=== PATIENT | female | born 1935 | race Caucasian/White ===

== ENCOUNTER 2016-06-21 00:12 | Emergency (ER) | payer MEDICARE, OTHER ==
[~2016-06-21] VITALS: Ht 157.5 cm; Wt 51.8 kg
[~2016-06-21 00:12] MED LIST: ASPI81TA2 PO; B12/1TAB3 PO; CHLO25TA PO; CHOL10003 PO; CODE1CAP19 PO; COLE3.754 PO; CYCL5TAB PO; ESTR1TAB15 PO; HYDR-2868 PO; HYDR-79 PO; HYDR12.53 PO; HYDR200T5 PO; LACT1CAP8 PO; MELO7.5T5 PO; METH2.5T PO; PRED20TA PO; VALS1TAB18 PO; VALS320T2 PO; VIT1CAPS20 PO; VITA400C36 PO
[2016-06-21] MEDS ORDERED: PREDNISONE 10 MG TABLET ONE (00:34)
[2016-06-21 00:49] VITALS: BP 152/72
[2016-06-21] MEDS ORDERED: PREDNISONE 10 MG TABLET PO ONE (01:00)
[2016-06-21] MEDS ORDERED: PREDNISONE 20 MG TABLET PO ONE (01:00)
--- NOTE | 2016-06-21 03:50 | ED.ADGEN ---
Past History Past Medical History: Arthritis, Hypertension, Other Past Surgical History: Appendectomy, Cholecystectomy, Hysterectomy, Other Alcohol Use: Rarely Drug Use: None Adult General Chief Complaint Chief Complaint Wrist pain HPI HPI Patient is a 81-year-old female with history of rheumatoid arthritis and carpal tunnel syndrome who presents with nontraumatic right wrist pain for the past 24 hours. Patient is wearing supportive wrist braces and has taken hydrocodone at home without any improvement prior to ED arrival. Patient with diffuse right wrist pain, tenderness with painful range of motion. Minimal swelling noticed to wrist, and right third MCP and finger. No cellulitis or erythema. Review of Systems Review of Systems ROS as per HPI. Current Medications Current Medications Current Medications Medications (Trade) Dose Ordered Sig/Meliza Start Time Stop Time Status Last Admin Dose Admin Prednisone (Prednisone) 50 mg 1X ONCE 06/21/16 01:00 06/21/16 01:00 DC 06/21/16 00:49 50 MG Allergies Allergies Allergies Coded Allergies Type Severity Reaction Last Updated Verified No Known Drug Allergies 08/25/15 No Physical Exam Physical Exam Constitutional: Well developed, well nourished, no acute distress, non-toxic appearance. HENT: Normocephalic, atraumatic, bilateral external ears normal, oropharynx moist. Eyes: PERRLA, EOMI. Neck: Normal range of motion. Extremities: Right upper extremity/wrist, diffuse right wrist pain, tenderness with painful range of motion. Minimal swelling noticed to wrist, and right third MCP and finger. No cellulitis or erythema. Neurologic: Alert and oriented X 3, extremity, no motor weakness or loss of sensation. Psychologic: Affect normal, judgement normal, mood normal. Current Patient Data Vital Signs Vital Signs Date Time Temp Pulse Resp B/P Pulse Ox O2 Delivery O2 Flow Rate FiO2 06/21/16 00:49 61 20 152/72 95 Room Air 06/21/16 00:28 97.4 EKG EKG [] Radiology/Procedures Radiology/Procedures [] Impressions: atraumatic right wrist pain consistent with rheumatoid arthritis Course & Med Decision Making Course & Med Decision Making Pertinent Labs and Imaging studies reviewed. (See chart for details) [Prednisone given. Recommend PCP follow up for further management. Final Impression Final Impression [1. Right wrist pain 2. h/o rheumatoid arthritis] Problems: Dragon Disclaimer Dragon Disclaimer This electronic medical record was generated, in whole or in part, using a voice recognition dictation system. HEATHER WATSON DO Jun 21, 2016 03:49
== END 2016-06-21 00:49 | disposition home or self-care (01) ==
LOC: ER 00:12
DX: M25.531 Pain in right wrist (principal); M06.9 Rheumatoid arthritis, unspecified; G56.00 Carpal tunnel syndrome, unspecified upper limb; I10 Essential (primary) hypertension
CPT/HCPCS: 99283; J7512

== ENCOUNTER 2016-10-15 16:38 | Inpatient (IN) | payer MEDICARE, OTHER ==
[~2016-10-15] VITALS: Ht 157.5 cm; Wt 54.1 kg
[~2016-10-15 16:38] MED LIST changes: +ASPI-630 PO; -ASPI81TA2 PO; +COLE3.753 PO; -COLE3.754 PO
[2016-10-15] MEDS ORDERED: ONDANSETRON PF 4 MG/2 ML VIAL. IV ONE (17:00)
[2016-10-15] MEDS ORDERED: HYDROmorphone PF 1 MG/ML DISP.SYRIN IV PRN (17:00)
--- NOTE | 2016-10-15 17:02 | PHYS DOC ---
Past History Past Medical History: Arthritis, Hypertension, Other Past Surgical History: Appendectomy, Cholecystectomy, Hysterectomy, Other Alcohol Use: Rarely Drug Use: None Adult General Chief Complaint Chief Complaint: GROIN PAIN HPI HPI 81-year-old female presenting to the emergency department today with left groin pain. Certain of this morning around 8:00. It is a sharp moderate to severe pain intermittent and without alleviating factors. It is worse when she moves her hip. She denies recent trauma. The pain radiates across from her buttocks into her groin. She denies nausea vomiting fevers chills or abdominal pain. Review of systems is negative for chest pain or syncope vision changes numbness weakness or tingling. All other review of systems is negative unless otherwise noted in history of present illness. ED course: 81-year-old female presenting to the emergency department with groin pain. Vital signs unremarkable. Pertinent physical exam findings showed no evidence of hernia in the groin. Patient in mild pain with passive range of motion of the left hip. Otherwise nontender back and soft nontender abdomen. The remainder the exam was unremarkable. The patient was given IV pain medication to help control her pain. On reexamination she was not feeling better and was subsequently admitted for further evaluation workup and care. Review of Systems Review of Systems ]SEE ABOVE. Current Medications Current Medications Current Medications Medications (Trade) Dose Ordered Sig/[facility] Start Time Stop Time Status Last Admin Dose Admin Hydromorphone HCl (Dilaudid) 0.5 mg PRN Q30MIN PRN 10/15/16 17:00 Ondansetron HCl (Zofran) 4 mg 1X ONCE 10/15/16 17:00 10/15/16 17:01 Allergies Allergies Allergies Coded Allergies Type Severity Reaction Last Updated Verified No Known Drug Allergies 08/25/15 No Physical Exam Physical Exam See above. Constitutional: Well developed, well nourished, no acute distress, non-toxic appearance. [] HENT: Normocephalic, atraumatic, bilateral external ears normal, oropharynx moist, no oral exudates, nose normal. [] Eyes: PERRLA, EOMI, conjunctiva normal, no discharge. [] Neck: Normal range of motion, no tenderness, supple, no stridor. [] Cardiovascular:Heart rate regular rhythm, no murmur [] Lungs & Thorax: Bilateral breath sounds clear to auscultation [] Abdomen: Bowel sounds normal, soft, no tenderness, no masses, no pulsatile masses. [] See above. Skin: Warm, dry, no erythema, no rash. [] Back: No tenderness, no CVA tenderness. [] Extremities: Palpable pulse in all extremities. 2 second cap refill in all extremities. See above. Neurologic: Alert and oriented X 3, normal motor function, normal sensory function, no focal deficits noted. [] Psychologic: Affect normal, judgement normal, mood normal. [] EKG EKG [] Radiology/Procedures Radiology/Procedures [] Course & Med Decision Making Course & Med Decision Making Pertinent Labs and Imaging studies reviewed. (See chart for details) [] Dragon Disclaimer Dragon Disclaimer This chart was dictated in whole or in part using Voice Recognition software in a busy, high-work load, and often noisy Emergency Department environment. It may contain unintended and wholly unrecognized errors or omissions. Departure Departure: Impression: Primary Impression: Left hip pain Disposition: ADMITTED INPATIENT Admitting Physician: Jailyn Figueroa Condition: STABLE Referrals: SPARKLE RODRIGUEZ MD (PCP) Patient Instructions: Hip Pain LUCY MORENO MD Oct 15, 2016 17:02
[2016-10-15] MEDS ORDERED: MORPHINE SULFATE 2 MG/ML DISP.SYRIN. IV PRN (17:45)
[2016-10-15] MEDS ORDERED: ONDANSETRON PF 4 MG/2 ML VIAL. IV PRN (17:45)
[2016-10-15 17:50] LABS: CALCIUM 8.8 mg/dL (8.5-10.1); CREATININE 0.9 mg/dL (0.6-1.0); GFR 60.2; POTASSIUM 4.9 mmol/L (3.5-5.1)
[2016-10-15 17:54] LABS: BASO % 1 % (0-3); EOS % 0 % (0-3); HEMATOCRIT 31.5 % (36.0-47.0); HEMOGLOBIN 10.8 g/dL (12.0-15.5); LYMPH # 1.1 x10^3/uL (1.0-4.8); LYMPH % 14 % (24-48); MEAN CORPUSCULAR HEMOGLOBIN 34 pg (25-35); MEAN CORPUSCULAR HGB CONC 34 g/dL (31-37); MEAN CORPUSCULAR VOLUME 98 fL (79-100); MONO # 0.9 x10^3/uL (0.0-1.1); MONO % 11 % (0-9); NEUT # 6.2 x10^3uL (1.8-7.7); NEUT % 75 % (31-73); PLATELET COUNT 232 x10^3/uL (140-400); RED BLOOD COUNT 3.22 x10^6/uL (3.50-5.40); RED CELL DISTRIBUTION WIDTH 14.5 % (11.5-14.5); WHITE BLOOD COUNT 8.2 x10^3/uL (4.0-11.0)
[2016-10-15] MEDS: IV NORMAL SALINE 1,000ML 1,000 ML IV SCH ×2 (17:54→20:59)
--- NOTE | 2016-10-15 18:16 | RAD ---
EXAM: Pelvis CT without contrast. HISTORY: Left hip pain. TECHNIQUE: Computed tomographic images of the pelvis were obtained without contrast. *One or more of the following individualized dose reduction techniques were utilized for this examination: 1. Automated exposure control. 2. Adjustment of the mA and/or kV according to patient size. 3. Use of iterative reconstruction technique. COMPARISON: None. FINDINGS: There is no fracture, dislocation or subluxation. The femoral heads are normal in configuration. There is minimal degenerative subchondral cyst formation involving the superior right humeral head and right anterior acetabulum. There are few tiny benign bone islands. There is a left hip effusion. There is minimal degenerative subchondral sclerosis and vacuum phenomenon involving the sacroiliac joints. There is grade 1 anterolisthesis of L4 and L5, measuring 7 mm. There is grade 1 anterolisthesis of L3 on L4 and L5 on S1, measuring 3 mm. There is instrumented posterior spinal fusion at L4-L5. There is disc space narrowing and facet arthropathy primarily at this level. There is common bile duct dilatation, likely due to reservoir effect status post cholecystectomy. There is moderate colonic stool. There is distal colonic diverticulosis. There is evidence of prior distal colonic resection. The uterus is surgically absent. The bladder is unremarkable. The ovaries are not seen. There is no lymphadenopathy. There is a focus of increased fat within the left angle canal, without significant herniation. IMPRESSION: 1. Left hip effusion. 2. Minimal osteoarthritis of the right hip and degenerative change involving the sacroiliac joints. 3. Multilevel degenerative change and postoperative change involving the lumbar spine, described above. 4. Colonic diverticulosis. Electronically signed by: Jacinta Mckinley MD (10/15/2016 6:14 PM) [facility]
[2016-10-15 19:05] LABS: SEDIMENTATION RATE 18 (0-25)
[2016-10-15] MEDS ORDERED: RANI150C PO (19:05)
[2016-10-15] MEDS ORDERED: FOLI1TAB16 PO (19:05)
[2016-10-15] MEDS ORDERED: HYDR-2758 PO (19:06)
[2016-10-15] MEDS ORDERED: CYAN500T17 PO (19:06)
[2016-10-15] MEDS ORDERED: INUL1TAB4 PO (19:06)
[2016-10-15 19:08] VITALS: BP 157/70
[2016-10-15] MEDS ORDERED: KETOROLAC TROMETHAMINE 10 MG TABLET PO ONE (19:50)
[2016-10-15 21:58] LABS: BACTERIA,URINE MANY /HPF (0-FEW); BILIRUBIN,URINE NEG (NEG); CLARITY,URINE CLOUDY; COLOR,URINE YELLOW; GLUCOSE,URINE NEG (NEG); NITRITE,URINE POS (NEG); SQUAMOUS EPITHELIAL CELL,UR MANY /LPF; UROBILINOGEN,URINE 0.2 mg/dL (0.2 mg/dL); WBC,URINE 20-40 /HPF (0-4)
[2016-10-15 22:25] VITALS: BP 134/79
[2016-10-16 05:50] VITALS: BP 158/68
[2016-10-16 06:05] LABS: BASO % 0 % (0-3); EOS % 0 % (0-3); HEMATOCRIT 26.7 % (36.0-47.0); HEMOGLOBIN 9.2 g/dL (12.0-15.5); LYMPH # 1.4 x10^3/uL (1.0-4.8); LYMPH % 20 % (24-48); MEAN CORPUSCULAR HEMOGLOBIN 34 pg (25-35); MEAN CORPUSCULAR HGB CONC 35 g/dL (31-37); MEAN CORPUSCULAR VOLUME 98 fL (79-100); MONO % 14 % (0-9); NEUT # 4.8 x10^3uL (1.8-7.7); NEUT % 66 % (31-73); PLATELET COUNT 177 x10^3/uL (140-400); RED BLOOD COUNT 2.73 x10^6/uL (3.50-5.40); RED CELL DISTRIBUTION WIDTH 14.4 % (11.5-14.5); WHITE BLOOD COUNT 7.3 x10^3/uL (4.0-11.0)
[2016-10-16 06:18] LABS: CALCIUM 7.7 mg/dL (8.5-10.1); GFR 53.3; POTASSIUM 4.6 mmol/L (3.5-5.1)
--- NOTE | 2016-10-16 08:09 | RAD ---
AP pelvis and 2 views left hip Indication: Left hip pain. Comparison: Same day CT pelvis. Findings: No acute fracture or traumatic malalignment. Prior L4-L5 posterior spinal fixation hardware. Right upper quadrant cholecystectomy clips. Left hip joint is maintained. No symphysis pubis widening. Impression: 1. No acute osseous abnormality. Please see same day CT pelvis for additional findings of the left hip.
[2016-10-16] MEDS ORDERED: hydroCHLOROthiazide 12.5 MG CAPSULE PO SCH (10:30)
[2016-10-16] MEDS: FOLIC ACID 1 MG TABLET PO SCH (10:44)
[2016-10-16] MEDS: CYANOCOBALAMIN (VITAMIN B-12) 1,000 MCG TABLET. PO SCH (10:44)
[2016-10-16] MEDS: CHOLECALCIFEROL (VITAMIN D3) 1,000 UNIT TABLET PO SCH (10:45)
[2016-10-16] MEDS: hydrALAZINE 25 MG TABLET PO SCH ×2 (10:45→22:17)
[2016-10-16] MEDS: FAMOTIDINE 20 MG TABLET PO SCH ×2 (10:45→22:17)
[2016-10-16] MEDS: ESTRADIOL 1 MG TABLET PO SCH (10:45)
[2016-10-16] MEDS: LACTOBACILLUS ACIDOPH & BULGAR 1 TABLET. PO SCH (10:46)
[2016-10-16] MEDS: ASPIRIN 81 MG TAB.CHEW PO SCH (10:46)
[2016-10-16] MEDS: LOSARTAN 50 MG TABLET. PO SCH (10:46)
[2016-10-16] MEDS: IV NORMAL SALINE 1,000ML 1,000 ML IV SCH (11:10)
[2016-10-16] MEDS: HYDROcodone/APAP 5/325MG 1 TAB TABLET PO PRN ×3 (11:13→22:59)
[2016-10-16 11:21] VITALS: BP 125/63
[2016-10-16 15:35] VITALS: BP 108/54
[2016-10-16] MEDS: PHENAZOPYRIDINE 200 MG TABLET. PO SCH ×2 (16:54→22:17)
--- NOTE | 2016-10-16 18:50 | HP ---
ADMIT DATE: 10/16/2016 REASON FOR ADMISSION: Left groin pain. HISTORY OF PRESENT ILLNESS: PRESENT ILLNESS: This is an 81-year-old female who evidently in the last week or so had been doing a lot of physical activity such as housework using mop scrubbing the floor on her hands and knees. She also had an episode of vomiting on Wednesday, which was pretty severe after eating and then developed this left groin pain. It is deep in the left groin was so severe that she could not walk and came to the Emergency Room yesterday and was admitted. PAST MEDICAL HISTORY: Rheumatoid arthritis, hypertension. She states she has some type of heart problem, but is not quite sure what it is. PAST SURGICAL HISTORY: Appendectomy, cholecystectomy, hysterectomy, and back surgery. MEDICATIONS: Reviewed and are available on the MAR. ALLERGIES: None. SOCIAL HISTORY: She is a . She does not smoke. Occasional alcohol. FAMILY HISTORY: Has daughters in the area that look in on her. REVIEW OF SYSTEMS: Positive for the left groin pain. No fever, no chills, no sore throat, no chest pain, no shortness of breath problems ambulating with this groin pain. OBJECTIVE: VITAL SIGNS: Blood pressure 125/63, pulse 58, respirations 20, temperature 98.5, pulse ox is 97% on room air. Height 62 inches, weight 114.2 pounds. GENERAL: An 81-year-old who looks younger than her stated age. HEENT: Hearing is normal. Her eyes are clear. Nose is patent. Throat was clear. NECK: Supple. LUNGS: Clear. CARDIOVASCULAR: Regular rhythm and rate with a 2/6 systolic murmur. ABDOMEN: Soft, nontender. EXTREMITIES: Without edema. MUSCULOSKELETAL: The patient is having considerable deep palpable left groin pain without evidence of a hernia. She had a lot of pain with moving her leg and swinging it over to stand. She stood with difficulty, no bulging hernia noted there either, able to bend knee and internally and externally rotate the leg without pain, but has pain with movement. DIAGNOSTIC DATA: Pelvic CT reveals a small left hip effusion, osteoarthritis of the right hip, multilevel degenerative changes of the back. She also has colonic diverticulosis. She was observed by physical therapy. She does have some pain, but is able to walk today shooting pain she describes it. LABORATORY DATA: Hematocrit 9.2, hemoglobin 26.7 this is after hydration. Chemistry: Sodium was 131 from 128. C-reactive protein is 33. Urine with 20-40 white cells, positive nitrites. ASSESSMENT: Possible urinary tract infection. Hyponatremia, probably secondary to hydrochlorothiazide, hypertension, left deep groin pain apparent urinary tract infection. PLAN: To treat urinary tract infection and see if these are related to her symptoms at all. FANTASMA HAMMONDS DO DR: MAHESH/phuc JOB#: [id number] / [id number]
[2016-10-16 20:45] VITALS: BP 123/51
[2016-10-16 23:27] VITALS: BP 161/60
[2016-10-17 05:09] VITALS: BP 123/55
[2016-10-17] MEDS: PHENAZOPYRIDINE 200 MG TABLET. PO SCH ×3 (06:03→20:32)
--- NOTE | 2016-10-17 06:15 | ACF ---
Admit Criteria Forms Admit Criteria Forms Admit Criteria Forms MUSCULOSKELETAL DISEASE GRG Clinical Indications for Admission to Inpatient Care (Place 'X' for any and all applicable criteria): Hospital admission is needed for appropriate care of the patient because of 1 or more of the following: [X]I. Fracture, dislocation, or other musculoskeletal injury requiring inpatient care(medical) as indicated by 1 or more of the following(4)(5)(6)(7) [ ]a) Vertebral fracture requiring observation for instability or neurologic compromise (8) [ ]b) Compartment syndrome (proven or cannot be ruled out during observation level of care) (9) [ ]c) Limb-threatening injury [ ]d) Major injury requiring inpatient stabilization such as traction initiation or external fixation before internal fixation or closure of complex or open fracture [ ]e) Major injury requiring inpatient treatment after emergency or observation level care (as appropriate) [X]f) Severe pain requiring acute inpatient management [ ]g) Injury with suspicion of abuse or neglect (eg., child, dependent elderly) [ ]II. Newly diagnosed or suspected bone, joint, or orthopedic device infection (e.g., osteomyelitis, septic arthritis) needing 1 or more of the following(1)(2)(3) [ ]a) IV antibiotics that cannot be initiated in other than inpatient setting (e.g., patient too unstable or home infusion not available) [ ]b) Device removal or replacement [ ]c) Bone or soft tissue debridement [ ]d) Joint drainage (drain placement or repetitive aspirations) [ ]III. Severe rheumatologic disease (e.g., systemic lupus erythematosus, rheumatoid arthritis) with complications or comorbidities (Also use Optimal Recovery Care Criteria or General Recovery Criteria as appropriate on the basis of predominant condition), including 1 or more of the following( 10)(11)(12)(13) [ ]a) Severe infection (e.g., POOL NURSE infection, sepsis) (14) [ ]b) Respiratory complications, including 1 or more of the following : [ ]i) Pleural effusion with respiratory compromise [ ]ii) Pulmonary hypertension with congestive failure [ ]iii) Respiratory failure [ ]iv) Pulmonary hemorrhage (15) [ ]c) Hematologic disease, including 1 or more of the following: [ ]i) Coagulopathy with bleeding [ ]ii) Thrombosis with hypercoagulable state [ ]iii) Thrombotic thrombocytopenic purpura [ ]d) Cerebritis with seizures, psychosis, or other severe abnormalities [ ]e) Vertebral destruction with monitoring needed for cervical myelopathy& possible respiratory compromise [ ]f) Exacerbation that requires inpatient treatment (e.g., intravenous immunosuppression) (16) [ ]g) Acute renal failure [ ]h) Cerebritis with seizures, psychosis, Altered mental status, or other neurologic abnormalities [ ]i) Pericardial effusion with tamponade [ ]j) Vertebral destruction, with monitoring needed for cervical myelopathy and possible respiratory compromise [ ]IV. Severe vasculitis with complications or comorbidities (Also use Optimal Recovery Care Criteria General Recovery Criteria as appropriate on the basis of predominant condition), including 1 or more of the following(11)(12)(17)(18)(19)(20) [ ]a) Exacerbation that requires inpatient treatment (e.g., intravenous immunosuppression) (19)(21) [ ]b) Pulmonary hemorrhage (15) [ ]c) POOL NURSE vasculitis with seizures, psychosis, Altered mental status that is severe or persistent, or other severe abnormalities (22) [ ]d) Cerebral infarction [ ]e) Gastrointestinal ischemia [ ]f) Gangrene or threatened amputation [ ]g) Renal failure (16) [ ]h) Other significant complications of vasculitis ( eg., tissue or organ ischemia, organ dysfunction ) [ ]V. Severe myopathy as indicated by 1 or more of the following (28)(29) [ ]a) New onset of airway compromise or inability to swallow [ ]b) Respiratory deterioration with observation needed for impending respiratory failure [ ]c) Exacerbation that requires inpatient treatment (e.g., intravenous immunosuppression) [ ]. Severe crystal gout (arthropathy) indicated by 1 or more of the following (23)(24) [ ]a) Severe pain requiring acute inpatient management [ ]b) Exacerbation that requires inpatient treatment (e.g., intravenous treatment) [ ]VII.Rhabdomyolysis and 1 or more of the following (25)(26)(27) [ ]a) Acute renal failure [ ]b) Need for intravenous hydration after emergency or observation level care (as appropriate) [ ]c) Inability to maintain oral hydration [ ]d) Change in mental status [ ]e) Electrolyte abnormality that remains after emergency or observation level care (as appropriate) [ ]VIII Post amputation complication, as indicated by ANY ONE of the following [ ]a) Infection [ ]b) Dehiscence [ ]c) Myodesis failure [ ]IX. Severe pain requiring acute inpatient management due to musculoskeletal condition [ ]X. Musculoskeletal Disease and ALL of the following: [ ]a) Symptom or finding for which emergency and observation care have failed or are not considered appropriate (Use General Criteria: Observation Care as appropriate) [ ]b) Presence of ANY ONE of the following [ ]i) A General Admission Criteria [ ]ii) A Pediatric General Admission Criteria The original [facility] content created by [facility] has been revised. The portions of the content which have been revised are identified through the use of italic text or in bold, and [facility] has neither reviewed nor approved the modified material. All other unmodified content is copyright [facility]. Please see references footnoted in the original [facility] 2016 PHIL DEJESUS Oct 17, 2016 06:15
[2016-10-17] MEDS: LOSARTAN 50 MG TABLET. PO SCH (08:29)
[2016-10-17] MEDS: FOLIC ACID 1 MG TABLET PO SCH (08:29)
[2016-10-17] MEDS: hydroCHLOROthiazide 25 MG TABLET PO SCH (08:30)
[2016-10-17] MEDS: CYANOCOBALAMIN (VITAMIN B-12) 1,000 MCG TABLET. PO SCH (08:31)
[2016-10-17] MEDS: CHOLECALCIFEROL (VITAMIN D3) 1,000 UNIT TABLET PO SCH (08:31)
[2016-10-17] MEDS: ESTRADIOL 1 MG TABLET PO SCH (08:32)
[2016-10-17] MEDS: FAMOTIDINE 20 MG TABLET PO SCH ×2 (08:32→20:32)
[2016-10-17] MEDS: hydrALAZINE 25 MG TABLET PO SCH ×2 (08:32→20:32)
[2016-10-17] MEDS: ASPIRIN 81 MG TAB.CHEW PO SCH (08:32)
[2016-10-17] MEDS: LACTOBACILLUS ACIDOPH & BULGAR 1 TABLET. PO SCH (08:32)
[2016-10-17 08:38] LABS: BASO % 1 % (0-3); EOS # 0.1 x10^3/uL (0.0-0.7); EOS % 2 % (0-3); HEMATOCRIT 28.5 % (36.0-47.0); HEMOGLOBIN 9.7 g/dL (12.0-15.5); LYMPH # 1.6 x10^3/uL (1.0-4.8); LYMPH % 24 % (24-48); MEAN CORPUSCULAR HEMOGLOBIN 34 pg (25-35); MEAN CORPUSCULAR HGB CONC 34 g/dL (31-37); MEAN CORPUSCULAR VOLUME 99 fL (79-100); MONO # 0.9 x10^3/uL (0.0-1.1); MONO % 14 % (0-9); NEUT % 60 % (31-73); PLATELET COUNT 194 x10^3/uL (140-400); RED BLOOD COUNT 2.89 x10^6/uL (3.50-5.40); RED CELL DISTRIBUTION WIDTH 14.5 % (11.5-14.5); WHITE BLOOD COUNT 6.7 x10^3/uL (4.0-11.0)
[2016-10-17 08:54] LABS: ALBUMIN 2.9 g/dL (3.4-5.0); ALBUMIN/GLOBULIN RATIO 0.8 (1.0-1.7); CALCIUM 8.2 mg/dL (8.5-10.1); CREATININE 1.1 mg/dL (0.6-1.0); GFR 47.8; MAGNESIUM 1.8 mg/dL (1.8-2.4); POTASSIUM 4.1 mmol/L (3.5-5.1); TOTAL BILIRUBIN 0.4 mg/dL (0.2-1.0); TOTAL PROTEIN 6.4 g/dL (6.4-8.2)
[2016-10-17] MEDS ORDERED: CHROMIUM PICOLINATE PO SCH (09:00)
[2016-10-17] MEDS ORDERED: INULIN PO SCH (09:00)
[2016-10-17 11:05] VITALS: BP 132/53
[2016-10-17] MEDS: HYDROcodone/APAP 5/325MG 1 TAB TABLET PO PRN ×2 (12:57→20:35)
[2016-10-17 15:09] VITALS: BP_SYST 125; BP_SYST 129; BP_DIAS 50; BP_DIAS 56
[2016-10-17] MEDS ORDERED: DOCUSATE SODIUM 100 MG CAPSULE PO PRN (16:00)
--- NOTE | 2016-10-17 18:46 | PN ---
DATE: 10/17/2016 CURRENT PROBLEMS: 1. Gram-negative urinary tract infection. 2. Left groin pain, improving. 3. Impaired mobility. 4. Fall risk. 5. Chronic kidney disease. 6. Hyponatremia secondary to hydrochlorothiazide. 7. Rheumatoid arthritis, stable. 8. Normochromic normocytic anemia. SUBJECTIVE: An 81-year-old admitted with severe groin pain and found to have urinary tract infection. She also had a slight effusion on the left hip beginning to thinking this is not related. As the groin pain has gotten better now that the urinary tract infection is being treated. She did relate some symptoms of UTIs and frequently a little bit of burning. She did have a bladder spasm last night and has started her on Pyridium, which helped. She did take her own ibuprofen today, which I would not have prescribed due to her kidney problems. OBJECTIVE: VITAL SIGNS: Blood pressure 132/53, temperature 97.9, pulse 60, respirations 20, and pulse ox 97% on room air. GENERAL: Color is better today. NECK: Supple. HEENT: Her tongue was moist. LUNGS: Clear. CARDIOVASCULAR: Regular rhythm and rate with a 2/6 systolic murmur. ABDOMEN: Soft and nontender. EXTREMITIES: With about 1+ edema. The patient ambulated with much less pain now. LABORATORY DATA: Her hemoglobin is 9.7 up from 9.2 and hematocrit is 28.5. Chemistry, sodium is 131, BUN 26, creatinine 1.1, and albumin is 2.9. Urine culture growing out gram-negative rods greater than 100,000. PLAN: We are going to discontinued the hydrochlorothiazide. Put on some knee high SHARMAINE hose. She really is not drinking enough fluid to support the hydrochlorothiazide. Recheck labs tomorrow and wait for culture. FANTASMA HAMMONDS DO DR: MAHESH/phuc JOB#: [id number] / [id number]
[2016-10-17 20:25] VITALS: BP 164/63
[2016-10-17 23:10] VITALS: BP 117/54
[2016-10-18] MEDS: predniSONE 10 MG TABLET PO PRN ×2 (00:05→08:33)
[2016-10-18] MEDS: HYDROcodone/APAP 5/325MG 1 TAB TABLET PO PRN ×2 (02:22→08:33)
[2016-10-18] MEDS: PHENAZOPYRIDINE 200 MG TABLET. PO SCH (05:43)
[2016-10-18 05:49] VITALS: BP 130/59
[2016-10-18 07:28] LABS: BASO % 0 % (0-3); EOS % 0 % (0-3); HEMATOCRIT 30.1 % (36.0-47.0); HEMOGLOBIN 10.3 g/dL (12.0-15.5); LYMPH # 1.2 x10^3/uL (1.0-4.8); LYMPH % 15 % (24-48); MEAN CORPUSCULAR HEMOGLOBIN 33 pg (25-35); MEAN CORPUSCULAR HGB CONC 34 g/dL (31-37); MEAN CORPUSCULAR VOLUME 98 fL (79-100); MONO # 0.5 x10^3/uL (0.0-1.1); MONO % 7 % (0-9); NEUT # 5.8 x10^3uL (1.8-7.7); NEUT % 77 % (31-73); PLATELET COUNT 260 x10^3/uL (140-400); RED BLOOD COUNT 3.08 x10^6/uL (3.50-5.40); RED CELL DISTRIBUTION WIDTH 14.2 % (11.5-14.5); WHITE BLOOD COUNT 7.5 x10^3/uL (4.0-11.0)
[2016-10-18 07:47] LABS: ALBUMIN/GLOBULIN RATIO 0.8 (1.0-1.7); CALCIUM 8.6 mg/dL (8.5-10.1); CREATININE 0.9 mg/dL (0.6-1.0); GFR 60.2; POTASSIUM 4.7 mmol/L (3.5-5.1); TOTAL BILIRUBIN 0.5 mg/dL (0.2-1.0); TOTAL PROTEIN 6.8 g/dL (6.4-8.2)
[2016-10-18] MEDS: LACTOBACILLUS ACIDOPH & BULGAR 1 TABLET. PO SCH (08:29)
[2016-10-18] MEDS: LOSARTAN 50 MG TABLET. PO SCH (08:29)
[2016-10-18] MEDS: FAMOTIDINE 20 MG TABLET PO SCH (08:30)
[2016-10-18] MEDS: FOLIC ACID 1 MG TABLET PO SCH (08:30)
[2016-10-18] MEDS: CYANOCOBALAMIN (VITAMIN B-12) 1,000 MCG TABLET. PO SCH (08:30)
[2016-10-18] MEDS: ESTRADIOL 1 MG TABLET PO SCH (08:30)
[2016-10-18] MEDS: hydroCHLOROthiazide 25 MG TABLET PO SCH (08:30)
[2016-10-18] MEDS: CHOLECALCIFEROL (VITAMIN D3) 1,000 UNIT TABLET PO SCH (08:31)
[2016-10-18] MEDS: ASPIRIN 81 MG TAB.CHEW PO SCH (08:31)
[2016-10-18] MEDS: hydrALAZINE 25 MG TABLET PO SCH (08:31)
[2016-10-18] MEDS ORDERED: METHOTREXATE SODIUM 2.5 MG TABLET PO SCH (09:00)
[2016-10-18] MEDS ORDERED: methylPREDNISolone SOD SUCC PF 125 MG/2 ML VIAL. IV ONE (09:45)
[2016-10-18 11:25] VITALS: BP 117/55
--- NOTE | 2016-10-18 13:08 | PDOC3 ---
Discharge Summary Visit Information Date of Admission: Oct 16, 2016 Date of Discharge: Oct 18, 2016 Final Diagnosis Problems Medical Problems: (1) Left hip pain Status: Acute 1. Gram-negative urinary tract infection. 2. Left groin pain, improving- MAY BE REFERRED PAIN FROM THE BLADDER. 3. Impaired mobility. 4. Fall risk. 5. Chronic kidney disease. 6. Hyponatremia secondary to hydrochlorothiazide. 7. Rheumatoid arthritis, stable. 8. Normochromic normocytic anemia. 9. RA FLARE 10. SMALL LEFT HIP EFFUSION Problems: Brief Hospital Course Allergies Allergies Coded Allergies Type Severity Reaction Last Updated Verified No Known Drug Allergies 08/25/15 No Vital Signs Vital Signs Date Time Temp Pulse Resp B/P (MAP) Pulse Ox O2 Delivery O2 Flow Rate FiO2 10/18/16 11:25 98.3 63 20 117/55 (75) 95 Room Air Lab Results Laboratory Tests Test 10/17/16 08:32 10/18/16 07:12 White Blood Count 6.7 x10^3/uL (4.0-11.0) 7.5 x10^3/uL (4.0-11.0) Red Blood Count 2.89 x10^6/uL (3.50-5.40) 3.08 x10^6/uL (3.50-5.40) Hemoglobin 9.7 g/dL (12.0-15.5) 10.3 g/dL (12.0-15.5) Hematocrit 28.5 % (36.0-47.0) 30.1 % (36.0-47.0) Mean Corpuscular Volume 99 fL (79-100) 98 fL (79-100) Mean Corpuscular Hemoglobin 34 pg (25-35) 33 pg (25-35) Mean Corpuscular Hemoglobin Concent 34 g/dL (31-37) 34 g/dL (31-37) Red Cell Distribution Width 14.5 % (11.5-14.5) 14.2 % (11.5-14.5) Platelet Count 194 x10^3/uL (140-400) 260 x10^3/uL (140-400) Neutrophils (%) (Auto) 60 % (31-73) 77 % (31-73) Lymphocytes (%) (Auto) 24 % (24-48) 15 % (24-48) Monocytes (%) (Auto) 14 % (0-9) 7 % (0-9) Eosinophils (%) (Auto) 2 % (0-3) 0 % (0-3) Basophils (%) (Auto) 1 % (0-3) 0 % (0-3) Neutrophils # (Auto) 4.0 x10^3uL (1.8-7.7) 5.8 x10^3uL (1.8-7.7) Lymphocytes # (Auto) 1.6 x10^3/uL (1.0-4.8) 1.2 x10^3/uL (1.0-4.8) Monocytes # (Auto) 0.9 x10^3/uL (0.0-1.1) 0.5 x10^3/uL (0.0-1.1) Eosinophils # (Auto) 0.1 x10^3/uL (0.0-0.7) 0.0 x10^3/uL (0.0-0.7) Basophils # (Auto) 0.0 x10^3/uL (0.0-0.2) 0.0 x10^3/uL (0.0-0.2) Sodium Level 131 mmol/L (136-145) 133 mmol/L (136-145) Potassium Level 4.1 mmol/L (3.5-5.1) 4.7 mmol/L (3.5-5.1) Chloride Level 99 mmol/L (98-107) 99 mmol/L (98-107) Carbon Dioxide Level 24 mmol/L (21-32) 23 mmol/L (21-32) Anion Gap 8 (6-14) 11 (6-14) Blood Urea Nitrogen 26 mg/dL (7-20) 22 mg/dL (7-20) Creatinine 1.1 mg/dL (0.6-1.0) 0.9 mg/dL (0.6-1.0) Estimated GFR (Cockcroft-Gault) 47.8 60.2 BUN/Creatinine Ratio 24 (6-20) 24 (6-20) Glucose Level 123 mg/dL (70-99) 122 mg/dL (70-99) Calcium Level 8.2 mg/dL (8.5-10.1) 8.6 mg/dL (8.5-10.1) Magnesium Level 1.8 mg/dL (1.8-2.4) Total Bilirubin 0.4 mg/dL (0.2-1.0) 0.5 mg/dL (0.2-1.0) Aspartate Amino Transf (AST/SGOT) 21 U/L (15-37) 21 U/L (15-37) Alanine Aminotransferase (ALT/SGPT) 29 U/L (14-59) 30 U/L (14-59) Alkaline Phosphatase 116 U/L (46-116) 128 U/L (46-116) Total Protein 6.4 g/dL (6.4-8.2) 6.8 g/dL (6.4-8.2) Albumin 2.9 g/dL (3.4-5.0) 3.0 g/dL (3.4-5.0) Albumin/Globulin Ratio 0.8 (1.0-1.7) 0.8 (1.0-1.7) Brief Hospital Course Ms. Lucio is a 81 old FEMALE who presented with SEVER LEFT DEEP GROIN PAIN AND THE INABILITY TO WALK. A HERNIA WAS NOT PRESENT. SHE HAD A SMALL EFFUSION OF THE LEFT HIP BUT IN HER WORK-UP SHE WAS FOUND TO HAVE A UTI. GROWING GM NEG. BACTERIA. THE C AND S IS STILL PENDING. DUE TO THE PRESSURE ON HER WRISTS FROM HAVING TO USE A WALKER SHE DEVELOPED A RA FLARE IN HER LEFT WRIST WITH THE ULNAR STYLOID SWOLLEN, PAINFUL AND RED. SHE WAS GIVEN A DOSE OF SOLUMEDROL ON . I FEEL SHE WOULD BENEFIT FROM [facility] AND SHE AGREED TO BE ADMITTED TO SWING BED STATUS. SHE WILL CONTINUE ON CEFTRIAXONE UNTIL HER CULTURE SENSITIVITIES ARE BACK. HER GROIN PAIN DID RESOLVE AFTER STARTING THE ANTIBIOTIC. Discharge Information Condition at Discharge: Improved, Stable Disposition/Orders: Other (DC TO SWING BED AT [facility]) Dischare Medications Current Medications Hydromorphone HCl (Dilaudid) 0.5 mg PRN Q30MIN PRN IV severe pain Last administered on 10/15/16 17:05; Start 10/15/16 at 17:00; Stop 10/16/16 at 20:18 ; Status DC Ondansetron HCl (Zofran) 4 mg 1X ONCE IV Last administered on 10/15/16 17:05 ; Start 10/15/16 at 17:00; Stop 10/15/16 at 17:01; Status DC Ondansetron HCl (Zofran) 4 mg PRN Q4HRS PRN IV NAUSEA/VOMITING; Start 10/15/16 at 17:45; Stop 10/16/16 at 17:44; Status DC Morphine Sulfate (Morphine 2mg Syringe) 2 mg PRN Q2HR PRN IV PAIN; Start at 17:45; Stop 10/16/16 at 17:44; Status DC Sodium Chloride 1,000 ml @ 100 mls/hr Q10H IV Last administered on 10/15/16 20:59; Start 10/15/16 at 18:00; Stop 10/16/16 at 17:59; Status DC Ketorolac Tromethamine (Toradol) 10 mg 1X ONCE PO Last administered on 20:59; Start 10/15/16 at 19:50; Stop 10/15/16 at 19:51; Status DC Aspirin (Children'S Aspirin) 81 mg DAILY PO Last administered on 10/18/16 08: 31; Start 10/16/16 at 10:30 Vitamin D (Vitamin D3) 2,000 unit DAILY PO Last administered on 10/18/16 08:31 ; Start 10/16/16 at 10:30 Estradiol (Estrace) 1 mg DAILY PO Last administered on 10/18/16 08:30; Start 10/16/16 at 10:30 Folic Acid (Folic Acid) 1 mg DAILY PO Last administered on 10/18/16 08:30; Start 10/16/16 at 10:30 Hydralazine HCl (Apresoline) 50 mg BID PO Last administered on 10/18/16 08:31 ; Start 10/16/16 at 10:30 Acetaminophen/ Hydrocodone Bitart (Lortab 5/325) 1 tab PRN Q6HRS PRN PO PAIN Last administered on 10/18/16 08:33; Start 10/16/16 at 10:15 Methotrexate (Rheumatrex) 2.5 mg QSU@0900 PO Last administered on 10/18/16 08: 41; Start 10/18/16 at 09:00 Cyanocobalamin (Vitamin B-12) 500 mcg DAILY PO Last administered on 10/18/16 08:30; Start 10/16/16 at 10:30 Non-Formulary Medication 1 each DAILY PO ; Start 10/17/16 at 09:00; Stop at 09:00; Status DC Lactobacillus Acidophilus (Bacid, Krista-Bid) 1 tab DAILY PO Last administered on 10/18/16 08:29; Start 10/16/16 at 10:30 Famotidine (Pepcid) 20 mg BID PO Last administered on 10/18/16 08:30; Start at 10:30 Losartan Potassium (Cozaar) 100 mg DAILY PO Last administered on 10/18/16 08: 29; Start 10/16/16 at 10:30 Hydrochlorothiazide (Microzide) 12.5 mg DAILY PO Last administered on 10:45; Start 10/16/16 at 10:30; Stop 10/16/16 at 15:30; Status DC Ceftriaxone Sodium 1 gm/ Sodium Chloride 50 ml @ 100 mls/hr Q24H IV Last administered on 10/17/16 16:22; Start 10/16/16 at 16:00 Hydrochlorothiazide (Hydrodiuril) 6.25 mg DAILY PO Last administered on 08:30; Start 10/17/16 at 09:00 Phenazopyridine HCl (Pyridium) 200 mg Q8HRS PO Last administered on 10/18/16 05:43; Start 10/16/16 at 16:45; Stop 10/18/16 at 09:35; Status DC Docusate Sodium (Colace) 200 mg PRN DAILY PRN PO constipation; Start 10/17/16 at 16:00 Prednisone (Prednisone) 10 mg PRN DAILY PRN PO INFLAMMATION Last administered on 10/18/16 08:33; Start 10/18/16 at 00:00 Methylprednisolone Sodium Succinate (SOLU-Medrol 125MG VIAL) 60 mg 1X ONCE IV Last administered on 10/18/16 10:32; Start 10/18/16 at 09:45; Stop 10/18/16 at 09:46; Status DC Active Scripts Active Reported Fiber Gummies (Inulin/Chromium Picolinate) 1 Each Tab.chew 1 Each PO DAILY B-12 (Cyanocobalamin (Vitamin B-12)) 500 Mcg Tablet 500 Mcg PO DAILY Hydrocodone-Apap 5-325 (Hydrocodone Bit/Acetaminophen) 1 Each Tablet 1 Tab PO PRN Q6HRS PRN Ranitidine Hcl 150 Mg Capsule 1 Cap PO BID Folic Acid 1 Mg Tablet 1 Tab PO DAILY Diovan Hct 320-12.5 Mg Tab (Valsartan/Hydrochlorothiazide) 1 Each Tablet 1 Each PO DAILY Probiotic (Lactobacillus Combo No.11) 1 Each Cap.sprink 1 Each PO DAILY Methotrexate (Methotrexate Sodium) 2.5 Mg Tablet 2.5 Mg PO Aspirin 81 Mg Tab.chew 81 Mg PO DAILY Vitamin D3 (Cholecalciferol (Vitamin D3)) 1,000 Unit Tablet 2 Tab PO DAILY Hydralazine Hcl 25 Mg Tablet 2 Tab PO BID Estradiol 1 Mg Tablet 1 Tab PO DAILY Patient Instructions Patient Instuctions TRANSFER TO SWING BED FOR PT, OT, AND FURTHER TREATMENT OF UTI AND RA FLARE. FANTASMA HAMMONDS DO Oct 18, 2016 13:08
[2016-10-18] MEDS ORDERED: HYDR12.58 PO (13:16)
[2016-10-18] MEDS ORDERED: CEFT1VIA6 IJ (13:16)
[2016-10-18] MEDS ORDERED: DOCU100C28 PO (15:01)
[2016-10-18] MEDS ORDERED: PRED-220 PO (15:03)
[2016-10-18] MEDS ORDERED: METH125V IV (15:05)
--- NOTE | 2016-10-20 20:47 | HP ---
ADMIT DATE: 10/16/2016 HISTORY OF PRESENT ILLNESS: The patient is an 81-year-old female patient, who was admitted to [address] [place] [address] on 10/16/2016 with complaint of left groin pain. She has been doing a lot of physical activity such as housework, using mop scrubbing the floor on her hands and knees. She also had an episode of vomiting on Wednesday, which was pretty severe after eating and then developed this left groin pain. It is deep in the left groin, was so severe that she could not walk and came to the Emergency Room for further evaluation. She has had pelvic CT revealing a small left hip effusion, osteoarthritis of the right hip, multilevel degenerative changes of the back. She also has colonic diverticulosis. During the course of investigation, she was found to have also urinary tract infection, hypernatremia and was given Solu-Medrol and treated with IV antibiotic in the form of ceftriaxone. She did eventually grew Klebsiella pneumoniae with growth of more than 100,000 colony forming units per mL of this bacteria susceptible to almost all antibiotics except ampicillin and the patient was seen by physical therapist and it was felt that she will benefit from further physical therapy and was admitted to [facility] on 10/18/2016. PAST MEDICAL HISTORY: Significant for rheumatoid arthritis, hypertension. PAST SURGICAL HISTORY: Significant for appendectomy, cholecystectomy, hysterectomy and back surgery. ALLERGIES: She has no known drug allergies. MEDICATIONS: She is currently on following medications: She is on aspirin 81 mg once a day, cholecalciferol, vitamin D3 2000 international units once a day, cyanocobalamin 500 mcg once a day, Colace 100 mg once a day, estradiol 1 mg once a day, folic acid 1 mg once a day, hydralazine 50 mg twice a day, hydrochlorothiazide 12.5 mg once a day, hydrocodone/APAP 5/325 one tablet every 6 hours. She is on ____ chromium picolinate for fiber gummies once a day, lactobacillus for probiotic one tablet once a day, methotrexate 2.5 mg every Wednesday. She was on prednisone 10 mg once a day, ranitidine 150 mg capsule twice a day. She is on valsartan/hydrochlorothiazide 320/12.5 mg once a day. FAMILY HISTORY: Has daughter in the area that looks after her; otherwise, family history is unremarkable. SOCIAL HISTORY: She is , lives on her own. She does not smoke, occasionally drinks alcohol socially. REVIEW OF SYSTEMS: As per history of present illness. PHYSICAL EXAMINATION: GENERAL: On examining her, she looked well and was clearly in no apparent respiratory distress. She was slightly pale, but no jaundice, cyanosis or thyromegaly. No jugular venous distention. No limb edema. VITAL SIGNS: Her heart rate was 73, blood pressure was 153/61, temperature was 97.6, respiratory rate was 18 and oxygen saturation was 96%. HEAD, EYES, EARS, NOSE AND THROAT: Showed normocephalic, atraumatic. NECK: Supple. HEART: Showed normal first and second heart sounds with no gallop, rub or murmur. CHEST: Clear to auscultation. No crepitation or rhonchi. ABDOMEN: Distended, soft, nontender. No guarding or rigidity. No organomegaly. All hernial orifices intact. Bowel sounds normal. NEUROLOGIC: She was awake, alert, responding appropriately. Her cranial nerves intact. EXTREMITIES: She moves extremities without difficulty. She ambulates without assistance or assistive devices. PLAN: 1. To continue with her IV antibiotic. 2. Continue with pain medication and her Solu-Medrol. Will continue with physical and occupational therapy. PHOENIX HOANG MD DR: JAMES/phuc JOB#: [id number] / [id number]
== END 2016-10-18 15:23 | disposition swing bed (61) | DRG 690 ==
LOC: ER 16:38 → 1 SOUTH 17:34 → OBSVTOIN 10-16 11:43
PROVIDERS: ADMIT Family Medicine; ATTEND Family Medicine
DX: N39.0 Urinary tract infection, site not specified (principal); E87.1 Hypo-osmolality and hyponatremia; M06.9 Rheumatoid arthritis, unspecified; N18.9 Chronic kidney disease, unspecified; T50.2X5A Adverse effect of carbonic-anhydrase inhibitors, benzothiadiazides and other diuretics, initial encounter; I12.9 Hypertensive chronic kidney disease with stage 1 through stage 4 chronic kidney disease, or unspecified chronic kidney disease; K59.00 Constipation, unspecified; D64.9 Anemia, unspecified; B96.89 Other specified bacterial agents as the cause of diseases classified elsewhere; M25.452 Effusion, left hip; Z79.899 Other long term (current) drug therapy; Z90.49 Acquired absence of other specified parts of digestive tract; Z79.82 Long term (current) use of aspirin; Z91.81 History of falling; Z79.1 Long term (current) use of non-steroidal anti-inflammatories (NSAID); Z90.710 Acquired absence of both cervix and uterus
CPT/HCPCS: 36415; 72192; 73502; 80048; 80053; 81001; 83735; 85027; 85651; 86140; 87086; 87186; 96361; 96365; 96375; 96376; G0378; G0379; J0696; J1170; J2405; J2930; J7512; J8610; 97116; 97530; 99285-25; J7030

== ENCOUNTER 2016-10-18 13:50 | Inpatient (IN) | payer MEDICARE, OTHER ==
[~2016-10-18] VITALS: Ht 157.5 cm; Wt 54.0 kg
[~2016-10-18 13:50] MED LIST changes: +CEFT1VIA6 IJ; +CYAN500T17 PO; +FOLI1TAB16 PO; +HYDR-2758 PO; +HYDR12.58 PO; +INUL1TAB4 PO; +RANI150C PO
[2016-10-18] MEDS ORDERED: DOCU100C28 PO (15:01)
[2016-10-18] MEDS ORDERED: PRED-220 PO (15:03)
[2016-10-18] MEDS ORDERED: METH125V IV (15:05)
[2016-10-18] MEDS ORDERED: HYDROcodone/APAP 5/325MG 1 TAB TABLET PO PRN (17:30)
[2016-10-18] MEDS ORDERED: DOCUSATE SODIUM 100 MG CAPSULE PO PRN (17:45)
[2016-10-18] MEDS ORDERED: predniSONE 10 MG TABLET PO PRN (18:00)
[2016-10-18 20:42] VITALS: BP 153/61
[2016-10-18] MEDS: hydrALAZINE 25 MG TABLET PO SCH (20:48)
[2016-10-18 21:19] VITALS: BP 153/61
[2016-10-19] MEDS ORDERED: methylPREDNISolone SOD SUCC PF 40 MG/ML VIAL. IV ONE (09:00)
[2016-10-19] MEDS ORDERED: cefTRIAXone SODIUM 1 GM VIAL IV SCH (09:00)
[2016-10-19] MEDS ORDERED: CHROMIUM PICOLINATE PO SCH (09:00)
[2016-10-19] MEDS ORDERED: INULIN PO SCH (09:00)
[2016-10-19] MEDS: CYANOCOBALAMIN (VITAMIN B-12) 1,000 MCG TABLET. PO SCH (09:06)
[2016-10-19] MEDS: LACTOBACILLUS ACIDOPH & BULGAR 1 TABLET. PO SCH (09:06)
[2016-10-19] MEDS: FOLIC ACID 1 MG TABLET PO SCH (09:06)
[2016-10-19] MEDS: CEPHALEXIN 500 MG CAPSULE PO SCH ×3 (09:06→20:41)
[2016-10-19] MEDS: hydrALAZINE 25 MG TABLET PO SCH ×2 (09:07→20:42)
[2016-10-19] MEDS: CHOLECALCIFEROL (VITAMIN D3) 1,000 UNIT TABLET PO SCH (09:07)
[2016-10-19] MEDS: ESTRADIOL 1 MG TABLET PO SCH (09:07)
[2016-10-19] MEDS: ASPIRIN 81 MG TAB.CHEW PO SCH (09:08)
[2016-10-19] MEDS: LOSARTAN 50 MG TABLET. PO SCH (09:08)
[2016-10-19] MEDS: FAMOTIDINE 20 MG TABLET PO SCH (09:08)
[2016-10-19 10:45] VITALS: BP 125/71
[2016-10-19] MEDS ORDERED: BENZOCAINE/MENTHOL LOZENGE 16'S BOX. PO PRN (16:15)
[2016-10-19] MEDS ORDERED: SODIUM CHLORIDE 0.65% NASAL SPRAY 45ML BOTTLE. NS PRN (16:15)
[2016-10-19] MEDS ORDERED: TEMAZEPAM 15 MG CAPSULE PO PRN (17:15)
[2016-10-19 21:00] VITALS: BP 183/76
[2016-10-20] MEDS: LACTOBACILLUS ACIDOPH & BULGAR 1 TABLET. PO SCH (08:53)
[2016-10-20] MEDS: hydrALAZINE 25 MG TABLET PO SCH (08:53)
[2016-10-20] MEDS: ESTRADIOL 1 MG TABLET PO SCH (08:53)
[2016-10-20 08:54] VITALS: BP 183/76
[2016-10-20] MEDS: FOLIC ACID 1 MG TABLET PO SCH (08:54)
[2016-10-20] MEDS: FAMOTIDINE 20 MG TABLET PO SCH (08:54)
[2016-10-20] MEDS: ASPIRIN 81 MG TAB.CHEW PO SCH (08:54)
[2016-10-20] MEDS: LOSARTAN 50 MG TABLET. PO SCH (08:54)
[2016-10-20] MEDS: CYANOCOBALAMIN (VITAMIN B-12) 1,000 MCG TABLET. PO SCH (08:54)
[2016-10-20] MEDS: CHOLECALCIFEROL (VITAMIN D3) 1,000 UNIT TABLET PO SCH (08:54)
[2016-10-20] MEDS: CEPHALEXIN 500 MG CAPSULE PO SCH ×2 (08:55→15:30)
[2016-10-20] MEDS ORDERED: methylPREDNISolone SOD SUCC PF 40 MG/ML VIAL. IV ONE (09:00)
[2016-10-20] MEDS ORDERED: hydroCHLOROthiazide 25 MG TABLET PO SCH (09:00)
[2016-10-20] MEDS ORDERED: CEPH-264 PO (14:11)
--- NOTE | 2016-10-20 21:04 | DS ---
DATE OF DISCHARGE: 10/20/2016 HOSPITAL COURSE: The patient is an 81-year-old female patient who was admitted with rheumatoid arthritis flare, complained of pain in her left hip joint with a joint effusion, but no fracture. She was also found to have urinary tract infection growing Klebsiella pneumoniae that was sensitive to all antibiotics except ampicillin. She was started on Solu-Medrol as well as IV ceftriaxone and did very well. She was admitted to swing bed, was evaluated by physical and occupational therapy. She did very well. She has been ambulatory independently and has had no further episode of pain and a decision was made to discharge her home. Her daughter is coming to stay with her for some time. PHYSICAL EXAMINATION: GENERAL: On examining her, she looked well and was clearly in no apparent respiratory distress, pale, but no jaundice, cyanosis or thyromegaly. No jugular venous distention. No limb edema. VITAL SIGNS: Her heart rate was 79, blood pressure was 153/61, temperature was 97.5, respiratory rate was 18 and oxygen saturation was 95%. HEAD, EYES, EARS, NOSE AND THROAT: Showed normocephalic, atraumatic. NECK: Supple. HEART: Showed normal first and second heart sounds with no gallop, rub or murmur. CHEST: Clear to auscultation. No crepitation or rhonchi. ABDOMEN: Distended, soft, nontender. NEUROLOGIC: She is awake, alert, responding appropriately. Cranial nerves intact. EXTREMITIES: She moves extremities without difficulty. She ambulates without assistance or assistive devices. DISCHARGE MEDICATIONS: She will be discharged home to continue with Keflex 500 mg 3 times a day for 2 more days, finish treatment of her urinary tract infection due to Klebsiella pneumoniae. Should continue on her aspirin 81 mg once a day, cholecalciferol, vitamin D3 2000 international units once a day, cyanocobalamin 500 mcg once a day, docusate sodium 100 mg once a day, estradiol 1 mg tablet once a day, folic acid 1 tablet once a day, hydralazine 50 mg twice a day, hydrochlorothiazide 12.5 mg once a day, hydrocodone/APAP 5/325 one tablet every 6 hours, 1 tablet once a day, lactobacillus probiotic 1 tablet once a day, methotrexate 2.5 mg every Wednesday, prednisone 10 mg once a day, ranitidine 150 mg twice a day, valsartan/hydrochlorothiazide 320/12.5 mg once a day. FINAL DISCHARGE DIAGNOSES: 1. Rheumatoid arthritis flare, resolving. 2. Hypertension. 3. Urinary tract infection due to Klebsiella pneumoniae. PHOENIX HOANG MD DR: JAMES/phuc JOB#: [id number] / [id number]
[2016-10-25] MEDS ORDERED: METHOTREXATE SODIUM 2.5 MG TABLET PO SCH (16:00)
== END 2016-10-20 15:33 | disposition home or self-care (01) | DRG 546 ==
LOC: LND 15:27
PROVIDERS: ADMIT Family Medicine; ATTEND Family Medicine
DX: M06.852 Other specified rheumatoid arthritis, left hip (principal); N39.0 Urinary tract infection, site not specified; I10 Essential (primary) hypertension; B96.1 Klebsiella pneumoniae [K. pneumoniae] as the cause of diseases classified elsewhere; M25.452 Effusion, left hip; Z79.899 Other long term (current) drug therapy
CPT/HCPCS: J2920; 97110; 97116; 97530